=== PATIENT | male | born 1965 | race Caucasian/White ===

== ENCOUNTER 2016-12-15 09:00 | Emergency (ER) | payer OTHER ==
[~2016-12-15] VITALS: Ht 175.3 cm; Wt 80.6 kg
[~2016-12-15 09:00] MED LIST: AMOXICILLIN500 MG PO; AVENTYL,PAMELOR25 MG PO; BENADRYL25 MG PO; BISAC-EVAC10 MG PR; BISACODYL5 MG PO; CYANOCOBAL1000 MCG/2 IM; DIABETA5 MG PO; DOCUSATE SODIU100 MG PO; EFFEXOR37.5 MG PO; ENALAPRIL MALEA20 M1 PO; ENALAPRIL MALEA20 MG PO; FIORICET,ESG1 TABLET PO; GABAPENTIN300 MG PO; GEMFIBROZIL600 MG PO; GLIPIZIDE10 MG PO; GLUCOPHAGE1000 M1 PO; GLYBURIDE MICRON6 MG PO; GLYBURIDE5 MG PO; GUAIFENESIN AC473 ML PO; IBUPROFEN200 M1 PO; LANTUS 10100 UNITS/ SC; LANTUS 3 M100 UNITS1 SC; LOPID600 MG PO; LOPRESSOR50 MG PO; LORTAB PO; LYRICA75 MG PO; MAG-AL PLUS SUS30 ML PO; MELATONIN300 MCG PO; METFORMIN HCL1000 MG PO; METOPROLOL PO; METOPROLOL SUCC25 MG PO; METOPROLOL TART50 MG PO; MILK OF MAGNESI10 ML PO; MOTRIN400 MG PO; MOTRIN600 MG PO; NEURONTIN300 MG PO; NEURONTIN400 MG PO; NIASPAN,SLO-NI500 MG PO; NORTRIPTYLINE H25 MG PO; OMEGA-31000 M1 PO; OXYCODONE HCL10 MG PO; SENNA8.6 MG PO; TRAMADOL HCL50 MG PO; TYLENOL WITH C1 EACH PO; ULTRAM50 MG PO; VASOTEC20 MG PO; VENLAFAXINE HC150 M1 PO; VIAGRA50 MG PO; ZESTRIL,PRINIVI20 MG PO; [UNRECOGNIZED DRUG - OTHER]
[2016-12-15] MEDS ORDERED: CELEXA20 MG PO (10:49)
[2016-12-15] MEDS ORDERED: METFORMIN HCL500 M4 PO (10:52)
[2016-12-15] MEDS ORDERED: ATORVASTATIN CA10 MG PO (10:53)
[2016-12-15] MEDS ORDERED: ZYBAN 150 MG T150 MG PO (10:53)
[2016-12-15] MEDS ORDERED: GLYBURIDE5 MG PO (10:54)
[2016-12-15] MEDS ORDERED: GABAPENTIN300 MG PO (10:55)
[2016-12-15] MEDS ORDERED: LO-DOSE ASPIRIN81 M2 PO (10:56)
[2016-12-15 11:02] LABS: ADD MIUA? YES; BILIRUBIN NEGATIVE; BLOOD SMALL; COLOR YELLOW ((YELLOW)); GLUCOSE (STRIP) 250; KETONES NEGATIVE; LEUKOCYTES NEGATIVE; NITRITE NEGATIVE; PROTEIN (STRIP) >=300; SPECIFIC GRAVITY 1.027 (1.000-1.030); UROBILINOGEN 0.2 MG/DL (0.2-1.0)
[2016-12-15 11:11] LABS: AMPHETAMINE NEGATIVE (500 ng/mL); BARBITURATES NEGATIVE (200 ng/mL); BENZODIAZEPINES NEGATIVE (150 ng/mL); COCAINE NEGATIVE (150 ng/mL); INTERNAL CONTROLS VALID? YES; METHADONE NEGATIVE (200 ng/mL); METHAMPHETAMINE NEGATIVE (500 ng/mL); OPIATES (MORPHINE) NEGATIVE (100 ng/mL); OXYCODONE NEGATIVE (100 ng/mL); PHENCYCLIDINE NEGATIVE (25 ng/mL); PROPOXYPHENE NEGATIVE (300 ng/mL); THC CANNABINOIDS PRESUMPTIVE POSITIVE (50 ng/mL); TRICYCLIC ANTIDEPRESSANTS NEGATIVE (300 ng/mL)
[2016-12-15 11:12] LABS: ADD MEDTOX COMMENT Y
[2016-12-15 11:35] LABS: BACTERIA RARE; CASTS NONE SEEN /LPF; CRYSTALS NONE SEEN; EPITHELIAL CELLS RARE; MUCUS NONE SEEN; RED BLOOD CELLS RARE /HPF (0-5); WHITE BLOOD CELLS NONE SEEN /HPF (0-5)
[2016-12-15 12:15] LABS: EOSINOPHIL (%) 2.3 % (0-5); EOSINOPHIL COUNT 0.2 K/uL (0-0.3); HEMATOCRIT 36.6 % (38.0-50.0); IMMATURE GRANULOCYTE (%) 0.2 % (0.0-0.7); IMMATURE GRANULOCYTE COUNT 0.2 K/uL; LYMPHOCYTE COUNT 1.3 K/uL (1.0-2.8); MCH 31.1 PG (29.0-34.0); MCHC 34.7 G/DL (30.0-36.0); MCV 89.5 FL (86-99); MEAN PLAT.VOLUME 11.5 uM^3 (9.0-12.4); MONOCYTE (%) 6.5 % (3-12); MONOCYTE COUNT 0.6 K/uL (0-0.8); NEUTROPHIL (%) 76.1 % (45-76); NEUTROPHIL COUNT 6.6 K/uL (1.8-6.4); PLATELET COUNT 184 K/uL (156-360); RBC DIS.WIDTH-CV 12.2 % (11.8-14.6); RBC DIS.WIDTH-SD 39.4 % (39-53); RED BLOOD COUNT 4.09 M/uL (4.00-5.50); WHITE BLOOD COUNT 8.7 K/uL (4.1-10.2)
[2016-12-15 12:29] LABS: CHLORIDE 107 mEq/L (99-109); POTASSIUM 4.1 mEq/L (3.7-5.4); SODIUM 141 mEq/L (136-147)
[2016-12-15 12:30] LABS: GLUCOSE 118 mg/dL (70-99)
[2016-12-15 12:32] LABS: ANION GAP 6 MEQ/L (2-14)
[2016-12-15 12:34] LABS: SERUM ETHYL ALCOHOL < 10 mg/dL
[2016-12-15 12:35] LABS: GFR ESTIMATE (CALCULATED) > 59 mL/min/; UREA NITROGEN (BUN) 10 mg/dL (9-23)
[2016-12-15 14:33] LABS: POINT-OF-CARE METER ID UU13113702
[2016-12-15 14:45] LABS: POINT-OF-CARE METER ID UU13113702
[2016-12-15 14:51] VITALS: BP 169/91
== END 2016-12-15 15:11 | disposition home or self-care (01) ==
LOC: EME 09:00
PROVIDERS: Emergency Medicine
DX: F43.23 Adjustment disorder with mixed anxiety and depressed mood (principal); F41.9 Anxiety disorder, unspecified; F32.9 Major depressive disorder, single episode, unspecified; I10 Essential (primary) hypertension; R51 Headache; E11.9 Type 2 diabetes mellitus without complications; Z79.4 Long term (current) use of insulin; Z87.891 Personal history of nicotine dependence; Z79.82 Long term (current) use of aspirin
CPT/HCPCS: 80048; 81003; 82948; 84999; 85025; 90839; 93005; 99281; 99284; G0480

== ENCOUNTER 2017-02-26 04:28 | Observation (INO) | payer OTHER ==
[~2017-02-26] VITALS: Ht 175.3 cm; Wt 83.8 kg
[~2017-02-26 04:28] MED LIST changes: +ATORVASTATIN CA10 MG PO; +CELEXA20 MG PO; +LO-DOSE ASPIRIN81 M2 PO; +METFORMIN HCL500 M4 PO; +ZYBAN 150 MG T150 MG PO
[2017-02-26 04:52] LABS: POINT-OF-CARE METER ID UU13113778
[2017-02-26 04:53] LABS: HEMATOCRIT 36.3 % (38.0-50.0); MCHC 34.7 G/DL (30.0-36.0); MCV 89.4 FL (86-99); MEAN PLAT.VOLUME 11.2 uM^3 (9.0-12.4); PLATELET COUNT 191 K/uL (156-360); RBC DIS.WIDTH-CV 12.4 % (11.8-14.6); RED BLOOD COUNT 4.06 M/uL (4.00-5.50); WHITE BLOOD COUNT 10.8 K/uL (4.1-10.2)
[2017-02-26 05:02] LABS: CHLORIDE 109 mEq/L (99-109); POTASSIUM 3.5 mEq/L (3.7-5.4); SODIUM 142 mEq/L (136-147)
[2017-02-26 05:03] LABS: GLUCOSE 167 mg/dL (70-99)
[2017-02-26 05:05] LABS: ANION GAP 8 MEQ/L (2-14)
[2017-02-26 05:07] LABS: GFR ESTIMATE (CALCULATED) > 59 mL/min/
[2017-02-26 05:08] LABS: UREA NITROGEN (BUN) 16 mg/dL (9-23)
[2017-02-26 05:15] LABS: TROP-I INTERPRETATION NEGATIVE; TROPONIN-I < 0.01 ng/mL (0.0-0.30)
[2017-02-26 07:30] LABS: D-DIMER ELISA 0.68 mg/L FEU (< 0.57)
[2017-02-26] MEDS ORDERED: GLUCOTROL10 MG PO (08:45)
[2017-02-26] MEDS ORDERED: REMERON15 M2 PO (08:47)
[2017-02-26] MEDS ORDERED: VISINE TEARS DR30 ML RIGHT EYE (08:50)
[2017-02-26] MEDS ORDERED: NICODERM CQ1 EAC1 TD (08:50)
[2017-02-26] MEDS ORDERED: TRAZODONE HCL50 MG PO (08:51)
[2017-02-26 09:16] LABS: POINT-OF-CARE METER ID UU14100415; POINT-OF-CARE USER ID STWBNM
[2017-02-26 11:13] LABS: TROP-I INTERPRETATION NEGATIVE; TROPONIN-I < 0.01 ng/mL (0.0-0.30)
[2017-02-26 11:44] LABS: POINT-OF-CARE METER ID UU14100415; POINT-OF-CARE USER ID STWBNM
[2017-02-26 16:12] LABS: POINT-OF-CARE METER ID UU13113831
[2017-02-26 16:33] VITALS: BP 194/91
[2017-02-26 17:43] LABS: TROP-I INTERPRETATION NEGATIVE; TROPONIN-I < 0.01 ng/mL (0.0-0.30)
[2017-02-26 20:00] VITALS: BP 169/90
[2017-02-26 23:46] VITALS: BP 167/116
[2017-02-27 07:34] LABS: HEMATOCRIT 32.2 % (38.0-50.0); MCH 30.9 PG (29.0-34.0); MCHC 34.5 G/DL (30.0-36.0); MCV 89.7 FL (86-99); MEAN PLAT.VOLUME 11.7 uM^3 (9.0-12.4); PLATELET COUNT 161 K/uL (156-360); RBC DIS.WIDTH-CV 12.4 % (11.8-14.6); RBC DIS.WIDTH-SD 40.7 % (39-53); RED BLOOD COUNT 3.59 M/uL (4.00-5.50)
[2017-02-27 07:35] LABS: ANION GAP 6 MEQ/L (2-14); CHLORIDE 105 MEQ/L (99-109); GFR ESTIMATE (CALCULATED) > 59 mL/min/; GLUCOSE 201 mg/dL (70-99); POTASSIUM 3.7 MEQ/L (3.7-5.4); SAMPLE HEMOLYSIS CHECK 0; SAMPLE ICTERIC CHECK 0; SAMPLE LIPEMIA CHECK 0; SODIUM 139 MEQ/L (136-147); UREA NITROGEN (BUN) 17 mg/dL (9-23)
[2017-02-27 07:36] LABS: WHITE BLOOD COUNT 7.3 K/uL (4.1-10.2)
[2017-02-27 07:46] VITALS: BP 168/95
[2017-02-27] MEDS ORDERED: IMDUR30 MG PO (12:39)
[2017-02-27 13:12] LABS: POINT-OF-CARE METER ID UU13113831
== END 2017-02-27 13:11 | disposition home or self-care (01) ==
LOC: EME 04:28 → EDOF 07:38 → 5WEST 07:38 → EDOF 07:38 → 5WEST 13:14
PROVIDERS: Emergency Medicine; Internal Medicine; Nurse Practitioner Adult Health
DX: R07.89 Other chest pain (principal); E11.9 Type 2 diabetes mellitus without complications; I10 Essential (primary) hypertension; I25.10 Atherosclerotic heart disease of native coronary artery without angina pectoris; Z89.511 Acquired absence of right leg below knee; Z87.891 Personal history of nicotine dependence
CPT/HCPCS: 71020; 71275; 80048; 82948; 84484; 85027; 85379; 93005; 93970; 99281; 99285; G0378; J1815; J1885; J2270

== ENCOUNTER 2017-06-28 05:06 | Day surgery (SDC) | payer OTHER ==
[~2017-06-28] VITALS: Ht 175.3 cm; Wt 83.9 kg
[~2017-06-28 05:06] MED LIST changes: +ASPIR 8181 M1 PO; -ATORVASTATIN CA10 MG PO; +ATORVASTATIN CA80 MG PO; +BRILINTA90 MG PO; +FAMOTIDINE20 MG PO; +GLUCOTROL10 MG PO; +IMDUR30 MG PO; +NICODERM CQ1 EAC2 TD; +NITROSTAT0.4 MG SL; +NORVASC5 MG PO; +REMERON15 M2 PO; +TRAZODONE HCL50 MG PO; +VISINE TEARS DR30 ML RIGHT EYE
[2017-06-28 06:13] VITALS: BP 154/80
[2017-06-28 06:16] LABS: EOSINOPHIL (%) 1.3 % (0-5); EOSINOPHIL COUNT 0.1 K/uL (0-0.3); HEMATOCRIT 34.7 % (38.0-50.0); IMMATURE GRANULOCYTE (%) 0.7 % (0.0-0.7); IMMATURE GRANULOCYTE COUNT 0.1 K/uL; INSTRUMENT ABS NEUTROPHIL CT 5.7 K/uL; LYMPHOCYTE COUNT 2.2 K/uL (1.0-2.8); MCH 27.7 PG (29.0-34.0); MCHC 32.3 G/DL (30.0-36.0); MCV 85.9 FL (86-99); MEAN PLAT.VOLUME 10.8 uM^3 (9.0-12.4); MONOCYTE (%) 6.9 % (3-12); MONOCYTE COUNT 0.6 K/uL (0-0.8); NEUTROPHIL (%) 65.8 % (45-76); NEUTROPHIL COUNT 5.7 K/uL (1.8-6.4); PLATELET COUNT 225 K/uL (156-360); RBC DIS.WIDTH-CV 13.7 % (11.8-14.6); RBC DIS.WIDTH-SD 42.8 % (39-53); RED BLOOD COUNT 4.04 M/uL (4.00-5.50); WHITE BLOOD COUNT 8.7 K/uL (4.1-10.2)
[2017-06-28 06:44] LABS: ANION GAP 5 MEQ/L (2-14); CHLORIDE 105 MEQ/L (99-109); POTASSIUM 4.1 MEQ/L (3.7-5.4); SAMPLE HEMOLYSIS CHECK 0; SAMPLE ICTERIC CHECK 0; SAMPLE LIPEMIA CHECK 0; SODIUM 139 MEQ/L (136-147); TOTAL BILIRUBIN 0.2 MG/DL (0.0-1.0)
[2017-06-28 06:49] LABS: ALKALINE PHOSPHATASE 120 IU/L (3-129); GFR ESTIMATE (CALCULATED) > 59 mL/min/; GLUCOSE 155 mg/dL (70-99); UREA NITROGEN (BUN) 18 mg/dL (9-23)
[2017-06-28 07:30] LABS: METH RESISTANT S AUREUS PCR NEGATIVE (NEGATIVE)
[2017-06-28 07:35] LABS: PROBE CHECK PASS; SPECIMEN PROCESSING CONTROL PASS
[2017-06-28 08:52] LABS: POINT-OF-CARE METER ID UU13113675
[2017-06-28 09:30] VITALS: BP 133/83
== END 2017-06-28 10:00 | disposition home or self-care (01) ==
LOC: SDC 05:06
PROVIDERS: Internal Medicine
DX: E11.3521 Type 2 diabetes mellitus with proliferative diabetic retinopathy with traction retinal detachment involving the macula, right eye (principal); H43.11 Vitreous hemorrhage, right eye; Z79.4 Long term (current) use of insulin; Z79.82 Long term (current) use of aspirin; I10 Essential (primary) hypertension; I73.9 Peripheral vascular disease, unspecified; Z95.1 Presence of aortocoronary bypass graft; Z87.891 Personal history of nicotine dependence
CPT/HCPCS: 80053; 82948; 85025; 87641; J0690; J3300

== ENCOUNTER 2017-10-13 12:13 | Emergency (ER) | payer OTHER ==
[~2017-10-13] VITALS: Ht 175.3 cm; Wt 80.5 kg
[2017-10-13 13:25] LABS: HEMATOCRIT 39.7 % (38.0-50.0); MCH 29.6 PG (29.0-34.0); MCV 87.1 FL (86-99); MEAN PLAT.VOLUME 11.4 uM^3 (9.0-12.4); PLATELET COUNT 227 K/uL (156-360); RBC DIS.WIDTH-CV 13.6 % (11.8-14.6); RBC DIS.WIDTH-SD 43.7 % (39-53); RED BLOOD COUNT 4.56 M/uL (4.00-5.50); WHITE BLOOD COUNT 10.8 K/uL (4.1-10.2)
[2017-10-13 13:39] LABS: CHLORIDE 104 mEq/L (99-109); POTASSIUM 4.4 mEq/L (3.7-5.4); SODIUM 137 mEq/L (136-147)
[2017-10-13 13:41] LABS: GLUCOSE 143 mg/dL (70-99)
[2017-10-13 13:43] LABS: ANION GAP 7 MEQ/L (2-14); TOTAL BILIRUBIN 0.6 mg/dL (0.0-1.0)
[2017-10-13 13:45] LABS: ALKALINE PHOSPHATASE 151 IU/L (3-129); GFR ESTIMATE (CALCULATED) 57 mL/min/
[2017-10-13 13:46] LABS: UREA NITROGEN (BUN) 12 mg/dL (9-23)
[2017-10-13 13:58] LABS: ADD MIUA? YES; BILIRUBIN NEGATIVE; BLOOD SMALL; COLOR YELLOW ((YELLOW)); GLUCOSE (STRIP) 50; KETONES 5; LEUKOCYTES NEGATIVE; NITRITE NEGATIVE; PROTEIN (STRIP) >=500; SPECIFIC GRAVITY 1.015 (1.000-1.030); UROBILINOGEN 0.2 MG/DL (0.2-1.0)
[2017-10-13 14:11] LABS: BACTERIA NONE SEEN /HPF; EPITHELIAL CELLS RARE /HPF; GRANULAR CASTS 0-5 /LPF; MUCUS TRACE /LPF; RED BLOOD CELLS 0-5 /HPF (0-5); UCUL ADDED? NO; WHITE BLOOD CELLS 0-5 /HPF (0-5)
[2017-10-13 16:08] VITALS: BP 128/78
== END 2017-10-13 16:09 | disposition home or self-care (01) ==
LOC: EME 12:13
DX: N50.812 Left testicular pain (principal); N50.82 Scrotal pain; N20.0 Calculus of kidney; R05 Cough; I86.1 Scrotal varices; N40.0 Benign prostatic hyperplasia without lower urinary tract symptoms; K57.30 Diverticulosis of large intestine without perforation or abscess without bleeding; I12.9 Hypertensive chronic kidney disease with stage 1 through stage 4 chronic kidney disease, or unspecified chronic kidney disease; E11.22 Type 2 diabetes mellitus with diabetic chronic kidney disease; N18.9 Chronic kidney disease, unspecified; Z89.511 Acquired absence of right leg below knee; Z95.1 Presence of aortocoronary bypass graft; Z79.02 Long term (current) use of antithrombotics/antiplatelets; Z79.82 Long term (current) use of aspirin; Z72.0 Tobacco use
CPT/HCPCS: 74176; 76870; 80053; 81003; 85027; 99281; 99283

== ENCOUNTER 2017-11-20 18:48 | Emergency (ER) | payer OTHER ==
[~2017-11-20] VITALS: Ht 175.3 cm; Wt 80.1 kg
[2017-11-20] MEDS ORDERED: ULTRAM50 MG PO (20:06)
[2017-11-20 20:20] VITALS: BP 162/100
== END 2017-11-20 20:45 | disposition home or self-care (01) ==
LOC: EME 18:48
PROC: 2W3HX1Z Immobilization of Left Thumb using Splint (ICD-10-PCS; principal; 2017-11-20)
DX: S60.012A Contusion of left thumb without damage to nail, initial encounter (principal); F17.200 Nicotine dependence, unspecified, uncomplicated; W22.09XA Striking against other stationary object, initial encounter; Z79.82 Long term (current) use of aspirin; Z91.030 Bee allergy status; Z88.6 Allergy status to analgesic agent; Z88.8 Allergy status to other drugs, medicaments and biological substances
CPT/HCPCS: 73130; 99281; 99284

== ENCOUNTER 2017-12-20 06:26 | Day surgery (SDC) | payer OTHER ==
[~2017-12-20] VITALS: Ht 172.7 cm; Wt 84.0 kg
[~2017-12-20 06:26] MED LIST changes: +BASAGLAR K100 UNIT/1 SC; +NOVOLOG PE100 UNITS/ SC
[2017-12-20 07:37] VITALS: BP 141/77
[2017-12-20 10:10] VITALS: BP 137/75
[2017-12-20 11:10] VITALS: BP 155/77
== END 2017-12-20 11:15 | disposition home or self-care (01) ==
LOC: SDC 06:26
PROVIDERS: Internal Medicine
DX: E11.3521 Type 2 diabetes mellitus with proliferative diabetic retinopathy with traction retinal detachment involving the macula, right eye (principal); H35.341 Macular cyst, hole, or pseudohole, right eye; I12.9 Hypertensive chronic kidney disease with stage 1 through stage 4 chronic kidney disease, or unspecified chronic kidney disease; E11.22 Type 2 diabetes mellitus with diabetic chronic kidney disease; N18.3 Chronic kidney disease, stage 3 (moderate); I25.10 Atherosclerotic heart disease of native coronary artery without angina pectoris; I51.9 Heart disease, unspecified; I73.9 Peripheral vascular disease, unspecified; K21.9 Gastro-esophageal reflux disease without esophagitis; E78.00 Pure hypercholesterolemia, unspecified; E11.40 Type 2 diabetes mellitus with diabetic neuropathy, unspecified; Z79.4 Long term (current) use of insulin; Z89.511 Acquired absence of right leg below knee; Z87.891 Personal history of nicotine dependence; Z83.3 Family history of diabetes mellitus
CPT/HCPCS: 82948; J0690; J2250; J3010; J7120